=== PATIENT | female | born 1960 | race Caucasian/White ===

== ENCOUNTER 2017-01-23 08:04 | Emergency (ER) | payer OTHER ==
[~2017-01-23] VITALS: Ht 160 cm; Wt 53.0 kg
[~2017-01-23 08:04] MED LIST: FLUT1SPR5 EACH NARE; LEVO.15 PO; TRAM50TA PO; ZOFR4TAB PO; ZOLO50TA PO
[2017-01-23 08:07] VITALS: BP 124/68; PULSE 57; RESP 16; TEMP 97.6; O2SAT 100
[2017-01-23] MEDS ORDERED: LOSA25TA PO (08:37)
--- NOTE | 2017-01-23 08:50 | PD ---
HPI Chief Complaint: Syncope/Near-Syncope Time Seen by Provider: 08:34 Travel History International Travel<30 days: No Contact w/Intl Traveler<30days: No Traveled to known affect area: No History of Present Illness HPI 56-year-old female complains of right-sided headache and left knee pain. Patient states that she struck her left knee against an object this morning and passed out from the pain. Patient states that she woke up with the pain on the right side the head. Patient states that she has mild pain on the left knee. Patient denies any visual change. Patient denies any nausea vomiting. Patient denies any neck pain. Patient denies any chest pain or shortness of breath. Patient denies abdominal pain. Patient denies any back pain. Patient denies any other extremity injury. On a scale of 1-10 the pain is a 7. PFSH Past Medical History Arthritis: Yes Depression: Yes Cardiovascular Problems: Yes (MURMUR) High Cholesterol: No Chest Pain: No Congestive Heart Failure: No Cerebrovascular Accident: No Diabetes: No Diminished Hearing: No Endocrine: Yes (thyroid) Gastrointestinal Disorders: No Genitourinary: No Headaches: Yes Hypertension: No Immune Disorder: No Musculoskeletal: No Neurologic: Yes (h.a. Vertigo) Reproductive: Yes (HYSTERECTOMY) Respiratory: No Immunizations Current: Yes Migraines: Yes Seizures: No Thyroid Disease: Yes ?: Not Menopausal: Yes Past Surgical History Abdominal Surgery: No Cardiac Surgery: Yes (murmur, Left bundle branch block) Section: Yes (x2) Ear Surgery: No Endocrine Surgery: Yes (partial thyroid reomved) Eye Surgery: No Genitourinary Surgery: No Gynecologic Surgery: No Hysterectomy: Yes Neurologic Surgery: Yes (Head ache/ dizziness) Oral Surgery: No Thoracic Surgery: No Other Surgery: Yes (PARTIAL THYROIDECTOMY) Social History Alcohol Use: Yes (OCCAS wine or beer) Tobacco Use: No Substance Use: No Allergies-Medications (Allergen,Severity, Reaction): Coded Allergies: Sulfa (Verified Allergy, Severe, HIVES, 01/23/17) Reported Meds & Prescriptions Reported Meds & Active Scripts Active Reported Losartan (Losartan Potassium) 25 Mg Tab 25 Mg PO HS Flonase Nasal [place] (Fluticasone Nasal [place]) Unknown Strength [place] Unknown Dose EACH NARE BID Synthroid (Levothyroxine Sodium) 150 Mcg Tab 150 Mcg PO DAILY Zoloft (Sertraline HCl) 50 Mg Tab 50 Mg PO HS Review of Systems General / Constitutional: No: Fever Eyes: No: Visual changes HENT: Positive: Headaches Cardiovascular: No: Chest Pain or Discomfort Respiratory: No: Shortness of Breath Gastrointestinal: No: Abdominal Pain Genitourinary: No: Dysuria Musculoskeletal: Positive: Pain Skin: No Rash Neurologic: No: Weakness Psychiatric: No: Depression Endocrine: No: Polydipsia Hematologic/Lymphatic: No: Easy Bruising Physical Exam Narrative GENERAL: Well-nourished, well-developed patient. SKIN: Focused skin assessment warm/dry. HEAD: Normocephalic. EYES: No scleral icterus. No injection or drainage. Pupils 3 mm equal reactive. NECK: Supple, trachea midline. No JVD or lymphadenopathy. No tenderness on palpation of the neck. CARDIOVASCULAR: Regular rate and rhythm without murmurs, gallops, or rubs. RESPIRATORY: Breath sounds equal bilaterally. No accessory muscle use. GASTROINTESTINAL: Abdomen soft, non-tender, nondistended. MUSCULOSKELETAL: No cyanosis, or edema. Patient has mild tenderness on palpation prepatellar area of the left knee. Full range of motion the left knee. Knee joints stable. No effusion noted. BACK: Nontender without obvious deformity. No CVA tenderness. Neurologic exam: Patient's awake and alert oriented 3. No obvious focal neurological deficit. Data Data Last Documented VS Vital Signs Date Time Temp Pulse Resp B/P Pulse Ox O2 Delivery O2 Flow Rate FiO2 01/23/17 08:07 97.6 57 16 124/[address] Brain W/O Iv Contrast(Rout) (01/23/17 08:41) Knee, Ltd (1 Or 2vws) (01/23/17 08:41) [facility] Medical Decision Making Medical Screen Exam Complete: Yes Emergency Medical Condition: Yes Interpretation(s) Last Impressions Knee X-Ray 01/23/17840 Signed Impressions: Service Date/Time: Monday, January 23, 2017 08:59 - CONCLUSION: Soft tissue swelling anterior to the knee joint. No acute fracture. Esau Silva MD Head CT 01/23/17840 Signed Impressions: Service Date/Time: Monday, January 23, 2017 08:46 - CONCLUSION: Normal examination. Scooter Campbell MD Differential Diagnosis Differential diagnosis including contusion, concussion, intracranial hemorrhage , knee contusion versus fracture versus dislocation. Narrative Course 56-year-old female with left knee injury and syncope. Patient has right-sided head pain from the episode. Diagnosis Primary Impression: Closed head injury Qualified Code: S09.90XA - Closed head injury, initial encounter Additional Impression: Contusion of left knee Qualified Code: S80.02XA - Contusion of left knee, initial encounter Patient Instructions: General Instructions Additional Instructions: Advil Tylenol as needed for pain and headache. Follow-up with personal physician. Return if worse. Head trauma instructions given. Med/Other Pt SpecificInfo: Prescription(s) given Disposition: 01 DISCHARGE HOME Condition: Stable Sg Carvalho MD Jan 23, 2017 08:50
--- NOTE | 2017-01-23 09:06 | RADHPO ---
EXAM DATE/TIME: 01/23/2017 08:46 [facility] COMPARISON: CT BRAIN W/O CONTRAST, September 26, 2016, 16:38. INDICATIONS : Syncope. Patient hit right parietal area when she fell. RADIATION DOSE: 63.06 CTDIvol (mGy) MEDICAL HISTORY : None SURGICAL HISTORY : Hysterectomy. section. ENCOUNTER: Initial ACUITY: 1 day PAIN SCALE: 3/10 LOCATION: cranial TECHNIQUE: Multiple contiguous axial images were obtained of the head. Using automated exposure control and adj ustment of the mA and/or kV according to patient size, radiation dose was kept as low as reasonably a chievable to obtain optimal diagnostic quality images. FINDINGS: CEREBRUM: The ventricles are normal for age. No evidence of midline shift, mass lesion, hemorrhage or acute in farction. No extra-axial fluid collections are seen. POSTERIOR FOSSA: The cerebellum and brainstem are intact. The 4th ventricle is midline. The cerebellopontine angle i s unremarkable. EXTRACRANIAL: The visualized portion of the orbits is intact. SKULL: The calvaria is intact. No evidence of skull fracture. CONCLUSION: Normal examination. Scooter Campbell MD on January 23, 2017 at 9:03 Board Certified Radiologist. This report was verified electronically.
--- NOTE | 2017-01-23 09:19 | RADHPO ---
EXAM DATE/TIME: 01/23/2017 08:59 [facility] COMPARISON: CHEST PA & LAT, November 28, 2015, 14:27. INDICATIONS : Hit left anterior knee on car door. MEDICAL HISTORY : Heart murmur. Left bundle branch block. Vertigo. SURGICAL HISTORY : Hysterectomy. section. Partial thyroidectomy. ENCOUNTER: Initial ACUITY: 1 day PAIN SCORE: 7/10 LOCATION: Left anterior knee FINDINGS: The exam demonstrates some soft tissue swelling of the suprapatellar fat pad. No acute bony fracture is seen. CONCLUSION: Soft tissue swelling anterior to the knee joint. No acute fracture. Esau Silva MD on January 23, 2017 at 9:17 Board Certified Radiologist. This report was verified electronically.
[2017-01-23 09:25] VITALS: BP 142/78
== END 2017-01-23 09:38 | disposition home or self-care (01) ==
LOC: PHED 08:04
DX: S09.90XA Unspecified injury of head, initial encounter (principal); S80.02XA Contusion of left knee, initial encounter; M19.90 Unspecified osteoarthritis, unspecified site; F32.9 Major depressive disorder, single episode, unspecified; E07.9 Disorder of thyroid, unspecified; R01.1 Cardiac murmur, unspecified; W22.8XXA Striking against or struck by other objects, initial encounter; Z79.899 Other long term (current) drug therapy
CPT/HCPCS: 70450; 73560